=== PATIENT | male | born 1995 | race African-American/Black ===

== ENCOUNTER 2017-10-29 14:57 | Emergency (ER) | payer SELFPAY ==
[2017-10-29] MEDS ORDERED: ONDANSETRON 4 MG TAB.RAPDIS PO ONE (16:31)
--- NOTE | 2017-10-29 16:31 | ER Document Report ---
Addendum entered and electronically signed by LIANNA WINTER LCSWA 10/30/17 10: 59: Discharge - Discharge Clinical Impression: Depression Qualifiers: Depression Type: unspecified Qualified Code(s): F32.9 - Major depressive disorder, single episode, unspecified Condition: Stable Disposition: HOME, SELF-CARE Instructions: Anxiety ([facility]) Additional Instructions: DEPRESSION: Your evaluation reveals that you have mental depression. While symptoms may be vague, they often include disturbance of sleep, fatigue, loss of appetite , and general loss of interest in life. While depression may be a side effect of drugs, or a reaction to a major change in your life, many cases have no known cause. If depression is acute, and related to a major loss in your life, you can expect it to clear completely with time. If you have been depressed a long time , are prone to repeated bouts of depression or low mood, or have been thinking of suicide, get help. Depression can be treated with anti-depressant medication and counselling. Long-term depression will often take a few weeks to clear, even with appropriate medication. Follow-up care is important. SUICIDAL IDEATION: Suicidal ideation is a common medical term for thoughts about suicide, which may be as detailed as a formulated plan, without the suicidal act itself. Although most people who undergo suicidal ideation do not commit suicide, some go on to make suicide attempts. The range of suicidal ideation varies greatly from fleeting to detailed planning, role playing, and unsuccessful attempts. While thoughts about suicide are common, most people do not carry out serious actions to commit suicide. Based upon your evaluation and discussion with you, we do not believe you are currently at risk to act upon your thoughts of suicide. You have agreed to return to the Emergency Department, at any time , if you feel inclined to act upon your suicidal thoughts. FOLLOW-UP CARE: Please follow up with [facility] for your continued outpatient mental health services in 3-5 days. You have been prescribed Zyprexa 5mg twice daily and Cogentin 1mg daily, please take as prescribed. If you experience worsening or a significant change in your symptoms, notify the physician immediately or return to the Emergency Department at any time for re-evaluation. Referrals: [facility] [Outside] - Follow up as needed [facility] [Outside] - Follow up in 3-5 days Original Note: ED General - General Mode of Arrival: Ambulatory Information source: Patient TRAVEL OUTSIDE OF THE [place] IN LAST 30 DAYS: No <BANDAR POPE - Last Filed: 10/29/17 18:21> <LIANNA WINTER - Last Filed: 10/30/17 10:54> <TIERRAGERTRUDIS - Last Filed: 10/30/17 11:22> - General Chief Complaint: Anxiety Stated Complaint: ANXIETY Time Seen by Provider: 10/29/17 16:28 - HPI Notes: 21-year-old male with a past medical history suicide attempt presents to the emergency room for feelings of wanting to harm himself, states he also has worsening anxiety and depression. Patient also is complaining of stomach pain after she ate at a [place] buffet last night, states he had vomiting and loose stool. Has not vomited for approximately 6 hours. Denies any diarrhea. Patient has been drinking without issues. Denies any fevers or chills. Denies any abdominal pain. Patient states he was IVC/d in [place], [place] for cutting himself with a knife. Patient states he moved to [place] about a month ago , does not know anyone here. Patient is not taking any medications for his anxiety or depression. Patient does not have a primary care doctor that he follows with. Patient states he does not own a gun. Denies any homicidal ideation. Denies fevers, chills, chest pain,palpitations, shortness of breath , dyspnea, diarrhea, abdominal pain, hematuria,blurred vision, double vision, loss of vision, speech changes, LH, dizziness, syncope, headaches, wheezing, ST , URI, neck pain, weakness, bowel or bladder dysfunction, saddle anesthesia, numbness or tingling in bilateral upper or lower extremities equally, muscle paralysis, weakness in bilateral upper or lower extremities equally or rash. Denies IV drug use. (BANDAR POPE) - Related Data Allergies/Adverse Reactions: Iodine and Iodide Containing Produc Allergy (Verified 10/29/17 14:58) shellfish derived Allergy (Verified 10/29/17 14:58) Past Medical History - General Information source: Patient - Social History Smoking Status: Unknown if Ever Smoked Family History: Reviewed & Not Pertinent <BANDAR POPE - Last Filed: 10/29/17 18:21> Review of Systems <BANDAR POPE - Last Filed: 10/29/17 18:21> <LIANNA WINTER - Last Filed: 10/30/17 10:54> <GERTRUDIS MAYORGA - Last Filed: 10/30/17 11:22> - Review of Systems Notes: REVIEW OF SYSTEMS: CONSTITUTIONAL : Denies fever, chills, or sweats. Denies recent illness. EENT: Denies eye, ear, throat, or mouth pain or symptoms. Denies nasal or sinus congestion or discharge. Denies throat, tongue, or mouth swelling or difficulty swallowing. CARDIOVASCULAR: Denies chest pain. Denies palpitations or racing or irregular heart beat. Denies ankle edema. RESPIRATORY: Denies cough, cold, or chest congestion. Denies shortness of breath, difficulty breathing, or wheezing. GASTROINTESTINAL: Denies abdominal pain or distention. reportsnausea, vomiting and loose stool. Denies diarrhea. Denies blood in vomitus, stools, or per rectum. Denies black, tarry stools. Denies constipation. GENITOURINARY: Denies difficulty urinating, painful urination, burning, frequency, blood in urine, or discharge. MUSCULOSKELETAL: Denies back or neck pain or stiffness. Denies joint pain or swelling. SKIN: Denies rash, lesions or sores. HEMATOLOGIC : Denies easy bruising or bleeding. LYMPHATIC: Denies swollen, enlarged glands. NEUROLOGICAL: Denies confusion or altered mental status. Denies passing out or loss of consciousness. Denies dizziness or lightheadedness. Denies headache. Denies weakness or paralysis or loss of use of either side. Denies problems with gait or speech. Denies sensory loss, numbness, or tingling. Denies seizures. PSYCHIATRIC: Reports anxiety or stress. Reports depression, suicidal ideation. Denies homicidal ideation. ALL OTHER SYSTEMS REVIEWED AND NEGATIVE. Dictation was performed using [employer] voice recognition software PHYSICAL EXAMINATION: GENERAL: Well-appearing, well-nourished and in no acute distress. HEAD: Atraumatic, normocephalic. EYES: Pupils equal round and reactive to light, extraocular movements intact, sclera anicteric, conjunctiva are normal. ENT: Nares patent, oropharynx clear without exudates. Moist mucous membranes. NECK: Normal range of motion, supple without lymphadenopathy LUNGS: Breath sounds clear to auscultation bilaterally and equal. No wheezes rales or rhonchi. HEART: Regular rate and rhythm without murmurs ABDOMEN: Soft, nontender, nondistended abdomen. No guarding, no rebound. No masses appreciated. Musculoskeletal: Normal range of motion, no pitting or edema. No cyanosis. NEUROLOGICAL: Cranial nerves grossly intact. Normal speech, normal gait. Normal sensory, motor exams PSYCH: Normal mood, normal affect. SKIN: Warm, Dry, normal turgor, no rashes or lesions noted. (BANDAR POPE) - Vital signs Vitals: Temp Pulse Resp BP Pulse Ox 98.7 F 71 16 130/76 H 100 10/29/17 15:16 10/29/17 15:16 10/29/17 15:16 10/29/17 15:16 10/29/17 15:16 Course - Laboratory Result Diagrams: 10/29/17 17:06 10/29/17 17:06 <BANDAR POPE - Last Filed: 10/29/17 18:21> <LIANNA WINTER - Last Filed: 10/30/17 10:54> - Laboratory Result Diagrams: 10/29/17 17:06 10/29/17 17:06 <GERTRUDIS MAYORGA - Last Filed: 10/30/17 11:22> - Re-evaluation Re-evalutation: Healthy 21-year-old male presents today because he would like an evaluation by mental health for his anxiety, depression and suicidal ideation, states he does not want to be placed into psychiatric hospital, has no intent to or plan to harm himself. States he would like someone just to talk to them to start meds if needed. Patient states that he is okay for spending the night. Patient has been petitioned. Patient states that the Zofran helped, states he is hungry and would like a meal tray. Patient denies any illicit drug use. Patient just moved to the area, does not know anyone here. On reevaluation 2 hours later, patient remains to have any abdominal tenderness on palpation, no CVA tenderness. Have vitals remained stable and he is afebrile. All questions and concerns answered by this provider. CBC negative for leukocytosis or anemia, CMP negative for any hepatic or renal dysfunction, no electrolyte deficiencies. Urinalysis positive for leukocytosis, no proteinuria or hematuria. Will add GC for evaluation as well as drug screen. Patient verbalized understanding of plan of care and agree with plan of care mental health seeing patient first thing in the morning. Patient stated he was willing to stay and is okay with being petition. Disposition given to TYRA Hernandez at 1915 (BANDAR POPE) - Vital Signs Vital signs: Temp Pulse Resp BP Pulse Ox 98.3 F 72 18 125/69 100 10/30/17 05:46 10/30/17 05:46 10/30/17 05:46 10/30/17 05:46 10/30/17 05:46 - Laboratory Laboratory results interpreted by me: 10/29/17 10/29/17 10/29/17 17:06 17:06 17:06 RBC 5.70 H MCV 79 L MCH 26.5 L Calcium 10.3 H Total Protein 8.3 H Ur Leukocyte Esterase LARGE H Chlamydia DNA (PCR) N.gonorrhoeae DNA (PCR) 10/29/17 22:11 RBC MCV MCH Calcium Total Protein Ur Leukocyte Esterase Chlamydia DNA (PCR) DETECTED H N.gonorrhoeae DNA (PCR) DETECTED H Discharge <BANDAR POPE - Last Filed: 10/29/17 18:21> <LIANNA WINTER - Last Filed: 10/30/17 10:54> <GERTRUDIS MAYORGA - Last Filed: 10/30/17 11:22> - Discharge Clinical Impression: STD (male), Chlamydia, Gonorrhea Depression Qualifiers: Depression Type: unspecified Qualified Code(s): F32.9 - Major depressive disorder, single episode, unspecified Condition: Stable Disposition: HOME, SELF-CARE Instructions: Anxiety ([facility]) Additional Instructions: DEPRESSION: Your evaluation reveals that you have mental depression. While symptoms may be vague, they often include disturbance of sleep, fatigue, loss of appetite , and general loss of interest in life. While depression may be a side effect of drugs, or a reaction to a major change in your life, many cases have no known cause. If depression is acute, and related to a major loss in your life, you can expect it to clear completely with time. If you have been depressed a long time , are prone to repeated bouts of depression or low mood, or have been thinking of suicide, get help. Depression can be treated with anti-depressant medication and counselling. Long-term depression will often take a few weeks to clear, even with appropriate medication. Follow-up care is important. SUICIDAL IDEATION: Suicidal ideation is a common medical term for thoughts about suicide, which may be as detailed as a formulated plan, without the suicidal act itself. Although most people who undergo suicidal ideation do not commit suicide, some go on to make suicide attempts. The range of suicidal ideation varies greatly from fleeting to detailed planning, role playing, and unsuccessful attempts. While thoughts about suicide are common, most people do not carry out serious actions to commit suicide. Based upon your evaluation and discussion with you, we do not believe you are currently at risk to act upon your thoughts of suicide. You have agreed to return to the Emergency Department, at any time , if you feel inclined to act upon your suicidal thoughts. FOLLOW-UP CARE: Please follow up with [facility] for your continued outpatient mental health services in 3-5 days. You have been prescribed Zyprexa 5mg twice daily and Cogentin 1mg daily, please take as prescribed. If you experience worsening or a significant change in your symptoms, notify the physician immediately or return to the Emergency Department at any time for re-evaluation. Gonorrhea You have been diagnosed with gonorrhea. In men, this germ infects the urethra (and sometimes the throat). Men usually have drainage from the penis and pain with urination. In women, the germ infects the vagina and fallopian tubes. There may be discharge and pelvic pain. Some women have no symptoms at all. The infection can do permanent damage to the tubes and ovaries. It should be taken very seriously. Treatment is antibiotics. It's important that you receive all recommended medication. Use condoms to prevent spread of the infection. Because this infection is spread sexually, your sexual partner must be checked before resuming sexual relations. If a culture shows gonorrhea germs, it must be reported to the health department. Call the doctor or return at once if you develop increasing fever, rash, joint swelling, severe pelvic pain, vaginal bleeding (other than your period), or problems with your bladder or bowels. Chlamydia You have a chlamydia infection. Chlamydia is a germ that grows inside the cells of the mucous membranes. It often infects the eyes, urethra, and fallopian tubes. It can cause chronic pain and scar tissue if untreated. Antibiotics are used to treat chlamydia. It's important to take all the medicine even if there are no symptoms. Use condoms to prevent spread of the infection. Because this infection can spread by sexual contact, it's important that your sexual partner be checked before resuming sexual relations. A positive test for chlamydia has to be reported to the health department. Call the doctor or return at once if you develop increasing fever, rash, severe pelvic pain, vaginal bleeding (other than your period), or problems with your bladder or bowels. Rocephin You have been given an injection of an antibiotic called Rocephin ( ceftriaxone). Sometimes the injection must be combined with antibiotic pills. For some infections, such as an uncomplicated ear infection, Rocephin provides all the antibiotic that's needed. The antibiotic will be in your body for about two days. For serious infections, we usually repeat doses of Rocephin daily. Side effects are very unusual following a shot. Women may develop vaginal yeast infections, and babies can get yeast (thrush) in the mouth following the use of antibiotics. Contact your physician if you have symptoms with this medication. Allergy to this antibiotic can result in hives, wheezing, faintness, or itching. If symptoms of allergy occur, call the doctor at once. Azithromycin Azithromycin (Zithromax) is a broad spectrum antibiotic in the same class as erythromycin. It can treat a variety of bacterial infections, but is most frequently used for respiratory infections. Azithromycin is extremely long-lasting. It accumulates in body tissues and continues to kill bacteria for many days. In order to improve absorption, Azithromycin should be taken at least one hour before or two hours after a meal. It does not have the same strong tendency to upset the stomach as erythromycin and is usually very well tolerated. Patients who have had a rash or other true allergic reactions to erythromycin should not take this medication. Call if you develop gastrointestinal distress, severe diarrhea, rash, hives, itching, or shortness of breath. You have been treated for gonorrhea and chlamydia infections. Your sexual partner needs to be seen and evaluated and likely treated for the same. You can get an recurrent infection from your sexual partner if she is not treated for this condition. Prescriptions: Benztropine Mesylate 1 mg PO DAILY #5 tablet Olanzapine [Zyprexa 5 mg Tablet] 5 mg PO BID #10 tablet Referrals[facility] [Outside] - Follow up in 3-5 days [facility] [Outside] - Follow up as needed
[2017-10-29 17:19] LABS: ABSOLUTE EOSINOPHILS # (AUTO) 0.1 10^3/uL (0.0-0.6); ABSOLUTE LYMPHOCYTES (AUTO) 1.4 10^3/uL (0.5-4.7); ABSOLUTE MONOCYTES (AUTO) 0.5 10^3/uL (0.1-1.4); ABSOLUTE NEUT (AUTO) 2.5 10^3/uL (1.7-8.2); BASOPHILS % (AUTO) 0.7 % (0-2); EOSINOPHILS % (AUTO) 3.1 % (0-6); HEMATOCRIT 45.3 % (37.9-51.0); HEMOGLOBIN 15.1 g/dL (13.5-17.0); LYMPHOCYTES % (AUTO) 31.1 % (13-45); MEAN CORPUSCULAR HEMOGLOBIN 26.5 pg (27.0-33.4); MEAN CORPUSCULAR HGB CONC 33.4 g/dL (32.0-36.0); MEAN CORPUSCULAR VOLUME 79 fl (80-97); MONOCYTES % (AUTO) 10.6 % (3-13); PLATELET COUNT 226 10^3/uL (150-450); RED CELL DISTRIBUTION WIDTH 13.4 % (11.5-14.0); SEGMENTED NEUTROPHILS % (AUTO) 54.5 % (42-78); TOTAL CELLS COUNTED % (AUTO) 100 %; WHITE BLOOD COUNT 4.6 10^3/uL (4.0-10.5)
[2017-10-29 17:36] LABS: ALANINE AMINOTRANSFERASE 34 U/L (21-72); ALBUMIN 4.7 g/dL (3.5-5.0); ALKALINE PHOSPHATASE 61 U/L (38-126); ANION GAP 12 (5-19); ASPARTATE AMINO TRANSFERASE 24 U/L (17-59); BILIRUBIN,DIRECT 0.3 mg/dL (0.0-0.4); BILIRUBIN,TOTAL 1.1 mg/dL (0.2-1.3); BLOOD UREA NITROGEN 12 mg/dL (7-20); CALCIUM 10.3 mg/dL (8.4-10.2); CARBON DIOXIDE 27 mmol/L (22-30); CHLORIDE 103 mmol/L (98-107); GLUCOSE 89 mg/dL (75-110); LIPASE 86.2 U/L (23-300); POTASSIUM 4.2 mmol/L (3.6-5.0); TOTAL PROTEIN 8.3 g/dL (6.3-8.2)
[2017-10-29 17:38] LABS: APPEARANCE,URINE CLEAR; BILIRUBIN,URINE NEGATIVE (NEGATIVE); COLOR,URINE STRAW; GLUCOSE, URINE NEGATIVE (NEGATIVE); KETONES,URINE NEGATIVE (NEGATIVE); LEUKOCYTE ESTERASE,URINE LARGE (NEGATIVE); NITRITE,URINE NEGATIVE (NEGATIVE); PROTEIN,URINE NEGATIVE (NEGATIVE); URINE SPECIFIC GRAVITY 1.006; UROBILINOGEN,URINE NEGATIVE mg/dL (<2.0)
[2017-10-29] MEDS ORDERED: LORAZEPAM 0.5 MG TABLET PO PRN (18:20)
[2017-10-29 19:17] LABS: URINE AMPHETAMINES SCREEN NEGATIVE; URINE BARBITURATES SCREEN NEGATIVE; URINE BENZODIAZEPINES SCREEN NEGATIVE; URINE COCAINE SCREEN NEGATIVE; URINE MARIJUANA (THC) SCREEN NEGATIVE; URINE METHADONE SCREEN NEGATIVE; URINE PHENCYCLIDINE SCREEN NEGATIVE
[2017-10-30 03:53] LABS: CHLAM PCR DETECTED (NOT DETECT); GON PCR DETECTED (NOT DETECT)
[2017-10-30] MEDS ORDERED: LIDOCAINE 1% INJ-PF (10 MG/ML) 30 ML SDV INJ ONE (10:18)
[2017-10-30] MEDS ORDERED: CEFTRIAXONE INJ 500 MG VIAL IM ONE (10:18)
--- NOTE | 2017-10-30 10:18 | ER Document Report ---
Doctor's Note Notes: 10/30/17 10:16 Rounds: Chart reviewed and patient interviewed. Patient says he is being evaluated for anxiety and depression. Has had some occasional suicidal thoughts , although does not feel that way at this moment. Vital signs are all essentially normal. Patient's lab workup is negative except for being positive gonorrhea and positive chlamydia on his urethral test. Treatment will be provided of Rocephin 500 mg IM and Zithromax 1 g p.o. Patient was advised that his sexual partner needs to be evaluated and checked and likely treated for the same conditions. He says he only has one sexual partner.. Patient appears to be medically stable for transfer or discharge. Silvano Doshi MD
[2017-10-30] MEDS ORDERED: AZITHROMYCIN 1 GM SUSP PACKET PO ONE (10:19)
--- NOTE | 2017-10-30 10:54 | PSYCHOLOGICAL NOTE ---
Psych Note - Psych Note Psych Note: Reason for Consult: Depression/anxiety 21-year-old male with a past medical history suicide attempt presents to the emergency room for feelings of wanting to harm himself, states he also has worsening anxiety and depression. Patient states he was IVC/d in [place], [place] for cutting himself with a knife. Patient states he moved to [place] about a month ago, does not know anyone here. Patient is not taking any medications for his anxiety or depression. Patient disclosed he has had increased anxiety and depression and 2 nights ago suffered from suicidal ideation and wrapped a belt around his neck; clinician notes there are no observed frey or bruises on patient's neck. He denies having any thoughts of self harm since. He reports he was hospitalized for 7 days at [facility] "the year before last" after attempting suicide. He reports he was put on medication but stopped taking them; 'I refused to take them...I didn't think I needed them...now I'm thinking medication is a better option." He disclosed he wrapped the belt around his neck because "sometimes the anxiety gets to be too much..the anxiety starts to take control." He denies history of substance abuse. Behavioral Health Team contacted, Patient's sister, Carrillo. She disclosed the patient lives with her; however, he has not been here long. She disclosed the patient does have depression. She denies a family history of any mental health concerns. To her knowledge patient has never hurt himself but has talked about it. She reports the patient does not do drugs, is a hard worker, and has a girlfriend. Patient is alert and orientated to person, place, time and circumstance. Mood is euthymic with congruent affect. Patient denies current suicidal ideation disclosing last event of suicidal ideation 2 days previous with suicidal gesture. Patient denies continued thoughts or wants of self-harm. Patient denies homicidal ideation. Delusions are absent behaviors congruent with intact reality based presentation i.e. organized and linear thought processes. Eye contact was well-maintained. Conversational speech was within normal rate, tone and prosody. Intellectual abilities appear to be within the average range. Attention and concentration are currently good. Insight, judgment, impulse control are good as evidenced by coming into [facility] ED for assistance and self identifying needing to be back on medication. Medication recommendations per [facility]'s contracted psychiatrist, Dr. Aimee MD are as follows: 1. Zyprexa 5 mg twice daily for depression and anxiety 2. Cogentin 1 mg daily to prevent any side effects from the zyprexa 311 (F32.9) unspecified depressive disorder Impression\\plan: Patient is cleared from acute psychiatric services. Patient discloses depression with anxiety. He reports suicidal ideation 2 nights previous with gesture; denies intent and denies current plans means or intent. Patient was noted to be an emotional crisis upon finding out some of his laboratory testings last night. Patient had called his girlfriend to confront about her cheating on him. Patient states he no longer feels anxiety. He would like to take medications and follow-up with outpatient mental health services. Patient is recommended for outpatient services. Dr. Ibarra was consulted on the care and management of this patient; attending physician is in agreement with recommendations and disposition.
[2017-10-30 11:33] VITALS: BP 115/88
== END 2017-10-30 11:31 | disposition home or self-care (01) ==
LOC: ER 14:57
DX: F32.9 Major depressive disorder, single episode, unspecified (principal); A56.8 Sexually transmitted chlamydial infection of other sites; A54.9 Gonococcal infection, unspecified
CPT/HCPCS: 99284; 96372; 36415; 87086; 83690; 85025; 80053; 81001; 80307; 87491; 87591; S0119; J3490; Q0144; J0696

== ENCOUNTER 2018-02-18 18:01 | Emergency (ER) | payer SELFPAY ==
[2018-02-18] MEDS ORDERED: NORMAL SALINE 1000 ML 1,000 ML IV ONE (19:21)
[2018-02-18] MEDS ORDERED: ONDANSETRON 4 MG TAB.RAPDIS SL ONE (19:21)
--- NOTE | 2018-02-18 19:29 | ER Document Report ---
ED GI/ - General Chief Complaint: Abdominal Pain Stated Complaint: NAUSEA/VOMITING Time Seen by Provider: 02/18/18 19:19 Mode of Arrival: Ambulatory Information source: Patient TRAVEL OUTSIDE OF THE [place] IN LAST 30 DAYS: No - HPI Patient complains to provider of: Abdominal pain, Vomiting Onset: Other - 3 days Timing/Duration: Intermittent Quality of pain: Achy Severity at maximum: Moderate Severity in ED: Moderate Pain Level: 2 Location: RUQ Associated symptoms: Nausea, Vomiting Similar symptoms previously: No Notes: 02/18/18 19:28 Patient is a 22-year-old male presenting to the emergency room today complaining of 3 day history of nausea, today he had one episode of vomiting, he has some pain in his right upper quadrant intermittently, he reports some dizziness at times and subjective fevers, denies dysuria or hematuria, he has had a small amount of diarrhea, denies any blood in his stools, history of appendectomy in the past - Related Data Allergies/Adverse Reactions: Iodine and Iodide Containing Produc Allergy (Verified 02/18/18 18:02) shellfish derived Allergy (Verified 02/18/18 18:02) Past Medical History - General Information source: Patient - Social History Smoking Status: Unknown if Ever Smoked Family History: Reviewed & Not Pertinent Renal/ Medical History: Denies: Hx Peritoneal Dialysis Psychiatric Medical History: Reports: Hx Depression Review of Systems - Review of Systems Constitutional: Chills, Fever EENT: No symptoms reported Cardiovascular: No symptoms reported Respiratory: No symptoms reported Gastrointestinal: See HPI Genitourinary: No symptoms reported Male Genitourinary: No symptoms reported Musculoskeletal: No symptoms reported Skin: No symptoms reported Hematologic/Lymphatic: No symptoms reported Neurological/Psychological: No symptoms reported -: Yes All other systems reviewed and negative Physical Exam - Vital signs Vitals: Temp Pulse Resp BP Pulse Ox 98.8 F 74 16 127/66 H 98 02/18/18 18:05 02/18/18 18:05 02/18/18 18:05 02/18/18 18:05 02/18/18 18:05 Interpretation: Normal - General General appearance: Appears well, Alert - HEENT Head: Normocephalic, Atraumatic Eyes: Normal Pupils: PERRL - Respiratory Respiratory status: No respiratory distress Chest status: Nontender Breath sounds: Normal Chest palpation: Normal - Cardiovascular Rhythm: Regular Heart sounds: Normal auscultation Murmur: No - Abdominal Inspection: Normal Distension: No distension Bowel sounds: Normal Tenderness: Nontender Organomegaly: No organomegaly - Back Back: Normal, Nontender - Extremities General upper extremity: Normal inspection, Nontender, Normal color, Normal ROM , Normal temperature General lower extremity: Normal inspection, Nontender, Normal color, Normal ROM , Normal temperature, Normal weight bearing. No: Radha's sign - Neurological Neuro grossly intact: Yes Cognition: Normal Orientation: AAOx4 [place] Coma Scale Eye Opening: Spontaneous [place] Coma Scale Verbal: Oriented [place] Coma Scale Motor: Obeys Commands Sofiya Coma Scale Total: 15 Speech: Normal Motor strength normal: LUE, RUE, LLE, RLE Sensory: Normal - Psychological Associated symptoms: Normal affect, Normal mood - Skin Skin Temperature: Warm Skin Moisture: Dry Skin Color: Normal Course - Re-evaluation Re-evalutation: 02/18/18 22:55 Patient resting comfortably, reports feeling better, no longer nauseated, abdomen is soft and nontender, lab and imaging findings discussed at bedside, symptoms likely viral in nature, patient will be discharged with a Zofran dose pack and instructions for follow-up, advised to return if any worsening or additional concerns, patient acknowledges understanding and agreement with this plan - Vital Signs Vital signs: Temp Pulse Resp BP Pulse Ox 98.8 F 74 16 127/66 H 98 02/18/18 18:05 02/18/18 18:05 02/18/18 18:05 02/18/18 18:05 02/18/18 18:05 - Laboratory Result Diagrams: 02/18/18 19:45 02/18/18 19:45 Laboratory results interpreted by me: 02/18/18 02/18/18 19:45 19:45 MCH 26.6 L RDW 14.2 H Seg Neutrophils % 39.4 L Eosinophils % 10.2 H AST 63 H ALT 98 H Total Protein 8.3 H - Diagnostic Test Radiology reviewed: Image reviewed, Reports reviewed Discharge - Discharge Clinical Impression: Abdominal pain Qualifiers: Abdominal location: right upper quadrant Qualified Code(s): R10.11 - Right upper quadrant pain Nausea and vomiting Qualifiers: Vomiting type: unspecified Vomiting Intractability: non-intractable Qualified Code(s): R11.2 - Nausea with vomiting, unspecified Condition: Stable Disposition: HOME, SELF-CARE Instructions: Abdominal Pain ([facility]), Antinausea Medication ([facility]), Vomiting ([facility]) Additional Instructions: Follow up with your primary care provider in one to 2 days. Return to the emergency room immediately if symptoms worsen or any additional concerns.
[2018-02-18 19:52] LABS: ABSOLUTE EOSINOPHILS # (AUTO) 0.6 10^3/uL (0.0-0.6); ABSOLUTE LYMPHOCYTES (AUTO) 2.2 10^3/uL (0.5-4.7); ABSOLUTE MONOCYTES (AUTO) 0.6 10^3/uL (0.1-1.4); ABSOLUTE NEUT (AUTO) 2.2 10^3/uL (1.7-8.2); BASOPHILS % (AUTO) 0.9 % (0-2); EOSINOPHILS % (AUTO) 10.2 % (0-6); HEMATOCRIT 42.3 % (37.9-51.0); HEMOGLOBIN 14.1 g/dL (13.5-17.0); LYMPHOCYTES % (AUTO) 38.1 % (13-45); MEAN CORPUSCULAR HEMOGLOBIN 26.6 pg (27.0-33.4); MEAN CORPUSCULAR HGB CONC 33.4 g/dL (32.0-36.0); MEAN CORPUSCULAR VOLUME 80 fl (80-97); MONOCYTES % (AUTO) 11.4 % (3-13); PLATELET COUNT 204 10^3/uL (150-450); RED BLOOD COUNT 5.31 10^6/uL (4.35-5.55); RED CELL DISTRIBUTION WIDTH 14.2 % (11.5-14.0); SEGMENTED NEUTROPHILS % (AUTO) 39.4 % (42-78); TOTAL CELLS COUNTED % (AUTO) 100 %; WHITE BLOOD COUNT 5.7 10^3/uL (4.0-10.5)
[2018-02-18 20:06] LABS: ALANINE AMINOTRANSFERASE 98 U/L (21-72); ALBUMIN 4.6 g/dL (3.5-5.0); ALKALINE PHOSPHATASE 47 U/L (38-126); ANION GAP 12 (5-19); ASPARTATE AMINO TRANSFERASE 63 U/L (17-59); BILIRUBIN,DIRECT 0.2 mg/dL (0.0-0.4); BILIRUBIN,TOTAL 0.7 mg/dL (0.2-1.3); BLOOD UREA NITROGEN 13 mg/dL (7-20); CALCIUM 10.1 mg/dL (8.4-10.2); CARBON DIOXIDE 29 mmol/L (22-30); CHLORIDE 103 mmol/L (98-107); GLUCOSE 93 mg/dL (75-110); POTASSIUM 4.3 mmol/L (3.6-5.0); SODIUM 143.6 mmol/L (137-145); TOTAL PROTEIN 8.3 g/dL (6.3-8.2)
[2018-02-18 20:09] LABS: APPEARANCE,URINE CLEAR; BILIRUBIN,URINE NEGATIVE (NEGATIVE); COLOR,URINE YELLOW; GLUCOSE, URINE NEGATIVE (NEGATIVE); KETONES,URINE NEGATIVE (NEGATIVE); LEUKOCYTE ESTERASE,URINE NEGATIVE (NEGATIVE); NITRITE,URINE NEGATIVE (NEGATIVE); PROTEIN,URINE NEGATIVE (NEGATIVE); URINE SPECIFIC GRAVITY 1.016; UROBILINOGEN,URINE NEGATIVE mg/dL (<2.0)
--- NOTE | 2018-02-18 22:52 | RADIOLOGY REPORT (SQ) ---
EXAM DESCRIPTION: Right upper quadrant sonogram, February 18, 2018 at 10:07 PM CLINICAL HISTORY: ruq pain COMPARISON: None. FINDINGS: Sonographic images of the right upper quadrant were submitted. Visualized portions of the aorta, pancreas and hepatic parenchyma are within normal limits. The gallbladder is partially contracted. There are no gallstones, gallbladder wall thickening or pericholecystic fluid collection. The common bile duct measured 3 mm which is within normal limits. There is no free fluid in the right upper quadrant. The right kidney measured 9.5 cm in length. IMPRESSION: No acute abnormalities.
[2018-02-18] MEDS ORDERED: ONDANSETRON ODT 4 MG TAB (6 TAB/ER DISP) PO PRN (22:56)
[2018-02-18 23:43] VITALS: BP 115/72
== END 2018-02-18 23:43 | disposition home or self-care (01) ==
LOC: ER 18:01
DX: R10.11 Right upper quadrant pain (principal); R11.2 Nausea with vomiting, unspecified; R42 Dizziness and giddiness; R19.7 Diarrhea, unspecified; R50.9 Fever, unspecified; Z91.013 Allergy to seafood
CPT/HCPCS: 99284; 96360; 36415; 83690; 85025; 80053; 81001; 76705; S0119; J7030

== ENCOUNTER 2018-09-09 21:26 | Emergency (ER) | payer SELFPAY ==
[2018-09-10] MEDS ORDERED: ONDANSETRON 4 MG TAB.RAPDIS PO ONE (02:03)
--- NOTE | 2018-09-10 02:07 | RADIOLOGY REPORT (SQ) ---
EXAM DESCRIPTION: XR ABDOMEN 1 VIEW (KUB) COMPLETED DATE/TME: 09/10/2018 01:00 CLINICAL HISTORY: 22 years Male, constipation COMPARISON: None. NUMBER OF VIEWS/TECHNIQUE: 2 FINDINGS: Intestinal gas pattern is within normal limits. Paucity of bowel gas. No suspicious calcification. Grossly intact skeletal structures. IMPRESSION: No acute findings.
[2018-09-10 02:42] LABS: ABSOLUTE EOSINOPHILS # (AUTO) 0.2 10^3/uL (0.0-0.6); ABSOLUTE LYMPHOCYTES (AUTO) 2.4 10^3/uL (0.5-4.7); ABSOLUTE MONOCYTES (AUTO) 0.5 10^3/uL (0.1-1.4); ABSOLUTE NEUT (AUTO) 2.5 10^3/uL (1.7-8.2); BASOPHILS % (AUTO) 0.9 % (0-2); EOSINOPHILS % (AUTO) 3.7 % (0-6); HEMATOCRIT 44.1 % (37.9-51.0); HEMOGLOBIN 14.8 g/dL (13.5-17.0); LYMPHOCYTES % (AUTO) 42.4 % (13-45); MEAN CORPUSCULAR HGB CONC 33.5 g/dL (32.0-36.0); MEAN CORPUSCULAR VOLUME 80 fl (80-97); MONOCYTES % (AUTO) 9.1 % (3-13); PLATELET COUNT 211 10^3/uL (150-450); RED BLOOD COUNT 5.48 10^6/uL (4.35-5.55); RED CELL DISTRIBUTION WIDTH 14.1 % (11.5-14.0); SEGMENTED NEUTROPHILS % (AUTO) 43.9 % (42-78); TOTAL CELLS COUNTED % (AUTO) 100 %; WHITE BLOOD COUNT 5.7 10^3/uL (4.0-10.5)
[2018-09-10 03:02] LABS: APPEARANCE,URINE CLEAR; BILIRUBIN,URINE NEGATIVE (NEGATIVE); COLOR,URINE STRAW; GLUCOSE, URINE NEGATIVE (NEGATIVE); KETONES,URINE NEGATIVE (NEGATIVE); LEUKOCYTE ESTERASE,URINE NEGATIVE (NEGATIVE); NITRITE,URINE NEGATIVE (NEGATIVE); PROTEIN,URINE NEGATIVE (NEGATIVE); URINE SPECIFIC GRAVITY 1.011; UROBILINOGEN,URINE NEGATIVE mg/dL (<2.0)
[2018-09-10 03:04] LABS: ALANINE AMINOTRANSFERASE 32 U/L (21-72); ALBUMIN 4.9 g/dL (3.5-5.0); ALKALINE PHOSPHATASE 59 U/L (38-126); ANION GAP 12 (5-19); ASPARTATE AMINO TRANSFERASE 27 U/L (17-59); BILIRUBIN,DIRECT 0.2 mg/dL (0.0-0.4); BILIRUBIN,TOTAL 1.2 mg/dL (0.2-1.3); BLOOD UREA NITROGEN 11 mg/dL (7-20); CALCIUM 10.1 mg/dL (8.4-10.2); CARBON DIOXIDE 29 mmol/L (22-30); CHLORIDE 103 mmol/L (98-107); GLUCOSE 87 mg/dL (75-110); POTASSIUM 4.3 mmol/L (3.6-5.0); SODIUM 144.2 mmol/L (137-145)
[2018-09-10] MEDS ORDERED: MAGNESIUM CITRATE 296 ML BOTTLE PO ONE (03:25)
[2018-09-10 04:07] VITALS: BP 110/73
--- NOTE | 2018-09-10 07:05 | ER Document Report ---
Entered by MATTEO TERRY SCRIBE 09/10/18 0203 Acting as scribe for:ALEJANDRO DIOP MD ED GI/ - General Chief Complaint: Constipation Stated Complaint: DIFFICULTY URINATING,NAUSEOUS Time Seen by Provider: 09/10/18 00:52 Mode of Arrival: Ambulatory Information source: Patient Notes: 22-year-old male who presents to the emergency department today with complaints of constipation with associated nausea. Patient states he has not had a bowel movement in the last 3-4 days. Patient states he has had bouts of constipation in the past. TRAVEL OUTSIDE OF THE [place] IN LAST 30 DAYS: No - Related Data Allergies/Adverse Reactions: Iodine and Iodide Containing Produc Allergy (Verified 09/09/18 21:32) shellfish derived Allergy (Verified 09/09/18 21:32) Past Medical History - General Information source: Patient - Social History Smoking Status: Current Every Day Smoker Cigarette use (# per day): Yes Chew tobacco use (# tins/day): No Frequency of alcohol use: None Drug Abuse: None Lives with: Family Family History: Reviewed & Not Pertinent Patient has suicidal ideation: No Patient has homicidal ideation: No Psychiatric Medical History: Reports: Hx Depression Past Surgical History: Reports: Hx Appendectomy Review of Systems - Review of Systems Constitutional: No symptoms reported EENT: No symptoms reported Cardiovascular: No symptoms reported Respiratory: No symptoms reported Gastrointestinal: See HPI, Nausea, Constipation Genitourinary: No symptoms reported Male Genitourinary: No symptoms reported Musculoskeletal: No symptoms reported Skin: No symptoms reported Hematologic/Lymphatic: No symptoms reported Neurological/Psychological: No symptoms reported -: Yes All other systems reviewed and negative Physical Exam - Vital signs Vitals: Temp Pulse Resp BP Pulse Ox 98.4 F 74 18 137/70 H 100 09/09/18 22:20 09/09/18 22:20 09/09/18 22:20 09/09/18 22:20 09/09/18 22:20 - Notes Notes: Physical Exam: General: Alert, appears well. HEENT: Normocephalic. Atraumatic. PERRL. Extraocular movements intact. Oropharynx clear. Neck: Supple. Non-tender. Respiratory: No respiratory distress. Clear and equal breath sounds bilaterally. Cardiovascular: Regular rate and rhythm. Abdominal: Normal Inspection. Non-tender. No distension. Normal Bowel Sounds. Back: Non-tender. No deformity or step off. Extremities: Moves all four extremities. Upper extremities: Normal inspection. Normal ROM. Lower extremities: Normal inspection. No edema. Normal ROM. Neurological: Normal cognition. AAOx4. Normal speech. Psychological: Normal affect. Normal Mood. Skin: Warm. Dry. Normal color. Course - Vital Signs Vital signs: Temp Pulse Resp BP Pulse Ox 98.4 F 74 18 137/70 H 100 09/09/18 22:20 09/09/18 22:20 09/09/18 22:20 09/09/18 22:20 09/09/18 22:20 - Laboratory Result Diagrams: 09/10/18 02:20 09/10/18 02:20 Laboratory results interpreted by me: 09/10/18 02:20 RDW 14.1 H - Diagnostic Test Radiology reviewed: Image reviewed - KUB shows large fecal load in the ascending and transverse colon. There is not appear to be a lot of stool in the distal descending colon or sigmoid colon region. Discharge - Discharge Clinical Impression: Constipation Qualifiers: Constipation type: unspecified constipation type Qualified Code(s): K59.00 - Constipation, unspecified Condition: Stable Disposition: HOME, SELF-CARE Additional Instructions: Constipation Constipation is a common problem. It is especially likely as you get older. Constipation is a common cause of abdominal pain, but sometimes causes no symptoms at all. Causes of constipation include certain medications, dehydration, diets, inactivity, and low-fiber intake. Rarely, it can be a symptom of underlying disease. The physician has evaluated you for this. Avoid constipation by eating a diet high in fiber, fruits, and vegetables. Drink plenty of liquids. Get regular exercise. If possible, avoid constipating medicines like narcotic pain medication. Some vitamin tablets can cause constipation. Stool softeners may be needed for difficult cases. An excellent stool softener is Konsyl which is available at [employer], and [employer] drug store. Just add a teaspoon to a glass of pineapple or orange juice daily or twice a day if needed. Laxatives are useful for occasional constipation. You should use them only when necessary. Too-frequent use can make your bowels dependent on them. Some over the counter laxatives available without prescription are: Milk of Magnesia, 1-2 tablespoons twice a day Dulcolax, 5 mg pill or 10 mg suppository. Citrate of Magnesia, 4-5 ounces a day for a day or two For acute constipation, Fleet's Enemas and Dulcolax suppositories are helpful. Chronic, intermediate designer use of laxatives or enemas is not a good idea. Your bowel may become dependant on them. You do not need to have a bowel movement every day. Many people do fine with a bowel movement every three or four days. You should call your doctor or return for re-evaluation if you pass blood in the stool, or if you develop fever or increasing abdominal pain. It would be a good idea to take MiraLAX every day. Also, you should drink lots of fluids throughout the day. Drinking magnesium citrate a few times a day until your bowels start moving well will be helpful. Follow-up with a local medical doctor if not improving. RETURN TO THE EMERGENCY ROOM IF ANY NEW OR WORSENING SYMPTOMS. I personally performed the services described in the documentation, reviewed and edited the documentation which was dictated to the scribe in my presence, and it accurately records my words and actions.
== END 2018-09-10 04:07 | disposition home or self-care (01) ==
LOC: ER 21:26
DX: K59.00 Constipation, unspecified (principal); R11.0 Nausea; F17.210 Nicotine dependence, cigarettes, uncomplicated
CPT/HCPCS: 99283; 36415; 85025; 80053; 81001; 74018; J3490; S0119

== ENCOUNTER 2018-11-17 10:12 | Emergency (ER) | payer SELFPAY ==
[2018-11-17] MEDS ORDERED: AZITHROMYCIN 250 MG TABLET PO ONE (10:41)
[2018-11-17] MEDS ORDERED: CEFTRIAXONE INJ 250 MG VIAL IM ONE (10:41)
--- NOTE | 2018-11-17 10:46 | ER Document Report ---
ED GI/ - General Chief Complaint: Urinary Problem Stated Complaint: ABDOMINAL PAIN Time Seen by Provider: 11/17/18 10:35 Mode of Arrival: Ambulatory Information source: Patient TRAVEL OUTSIDE OF THE [place] IN LAST 30 DAYS: No - HPI Patient complains to provider of: Abdominal pain, Dysuria, Other - discharge Notes: 11/17/18 10:42 Patient here with complaints of some intermittent lower abdominal pain for about a week now. He is also had dysuria for the last week and over the last few days has noticed some discharge from his penis. He is sexually active with a new partner. No fevers. No nausea, vomiting, diarrhea. No rash. No chest pain or shortness of breath. Pain is mild, worse with urination, better with rest. He denies any numbness, tingling, weakness. He has no other complaints at this time. - Related Data Allergies/Adverse Reactions: Iodine and Iodide Containing Produc Allergy (Verified 09/09/18 21:32) shellfish derived Allergy (Verified 09/09/18 21:32) Past Medical History - Social History Smoking Status: Current Every Day Smoker Family History: Reviewed & Not Pertinent Patient has suicidal ideation: No Patient has homicidal ideation: No Renal/ Medical History: Denies: Hx Peritoneal Dialysis Psychiatric Medical History: Reports: Hx Depression Past Surgical History: Reports: Hx Appendectomy Review of Systems - Review of Systems -: Yes All other systems reviewed and negative Physical Exam - Vital signs Vitals: Temp Pulse Resp BP Pulse Ox 98.4 F 61 18 136/79 H 100 11/17/18 10:20 11/17/18 10:20 11/17/18 10:20 11/17/18 10:20 11/17/18 10:20 - Notes Notes: GENERAL: alert, cooperative, nontoxic, no distress. HEAD: normocephalic, atraumatic EYES: conjunctiva pink without discharge, no external redness or swelling. EARS: no external swelling, no external redness NOSE: atraumatic, no external swelling MOUTH/THROAT: mucous membranes moist and pink, posterior pharynx without erythema, swelling, exudate. No trismus or drooling. NECK: soft, supple, full range of motion, no meningismus. CHEST: no distress, lungs clear and equal throughout. No wheezing, rales, rhonchi. CARDIAC: regular rate and rhythm, no murmur, normal capillary refill, normal pulses. No peripheral edema noted. ABDOMEN: Soft, minimal tenderness to suprapubic area. No rebound tenderness or guarding. BACK: full range of motion, no CVA tenderness. EXTREMITIES: full range of motion of all extremities. No redness, no swelling. NEURO: alert and oriented x 3, no focal deficits, full range of motion of all extremities. PYSCH: appropriate mood, affect. Patient is cooperative. SKIN: pink, warm, dry, no rash. : Circumcised penis. Green penile discharge present. No rash. Testicular exam shows no mass, tenderness, swelling. No hernia. Course - Re-evaluation Re-evalutation: 11/17/18 10:43 Patient is nontoxic-appearing with stable vitals. Patient here with complaints of intermittent lower abdominal pain with dysuria for about a week and penile discharge for the last 2 days. He has a new sexual partner within the last 3 weeks. On exam he is noted to have penile discharge, the remainder of the exam is unremarkable. He has minimal suprapubic tenderness on exam with no righ t lower quadrant tenderness on abdominal exam. He is afebrile. Patient likely with sexually transmitted infection due to his new sexual partner, penile discharge and dysuria. Patient will give urine sample to test for gonorrhea and chlamydia. He will be treated with Rocephin and Zithromax in the emergency department. He was instructed to contact his partner to let them know that he is having symptoms as well. No sexual intercourse for 1 week. Follow-up with health department or primary care for HIV and syphilis testing. Follow-up sooner if he develops any worsening pain, fever, vomiting, swelling, any further concerns. The patient's emergency department workup and current diagnosis were explained to the patient and or family. Follow-up instructions were provided. Medications if prescribed were discussed. Instructions for when to return to the emergency department including specific worrisome symptoms were discussed with the patient and/or family. - Vital Signs Vital signs: Temp Pulse Resp BP Pulse Ox 98.4 F 61 18 136/79 H 100 11/17/18 10:20 11/17/18 10:20 11/17/18 10:20 11/17/18 10:20 11/17/18 10:20 Discharge - Discharge Clinical Impression: Urethritis, Penile discharge Condition: Stable Disposition: HOME, SELF-CARE Instructions: Urethritis ([facility]), Gonorrhea ([facility]), Chlamydia ([facility]) Additional Instructions: Take medications as prescribed. Always use condoms. Follow-up with the health department or your primary care doctor for HIV and syphilis testing. Let your partner know that you are having symptoms and that they need to be tested and treated. You should avoid any sexual contact until both of you have been treated for at least 1 week. Follow-up for any worsening pain, high fever, persistent vomiting, swelling, or for any further concerns. Forms: Elevated Blood Pressure Referrals: [facility] [Provider Group] - Follow up as needed
[2018-11-17] MEDS ORDERED: LIDOCAINE 1% INJ (10 MG/ML) 10 ML MDV ONE (10:59)
[2018-11-17 11:30] VITALS: BP 144/66
[2018-11-17 12:45] LABS: CHLAM PCR NOT DETECTED (NOT DETECT); GON PCR DETECTED (NOT DETECT)
== END 2018-11-17 11:21 | disposition home or self-care (01) ==
LOC: ER 10:12
DX: N34.2 Other urethritis (principal); R36.9 Urethral discharge, unspecified; R39.198 Other difficulties with micturition; R10.30 Lower abdominal pain, unspecified; R30.0 Dysuria; F17.200 Nicotine dependence, unspecified, uncomplicated
CPT/HCPCS: 99283; 96372; 87491; 87591; J0696